=== PATIENT | male | born 1950 | race Two or more races ===

== ENCOUNTER → 2021-01-11 | Outpatient (CLI) | payer BC ==
--- NOTE | 2021-01-12 11:45 | KCIC ---
EXAM: XR LUMBAR SPINE 2-3V 01/11/2021 3:25 PM CLINICAL INDICATION: Left hip and leg pain for 6 months, bilateral lower extremity weakness COMPARISON: None TECHNIQUE: 3 views of the lumbar spine FINDINGS: There 5 nonrib-bearing lumbar vertebral bodies. No acute fracture. There is a 7 mm anterol isthesis of L4 and L5. Mild disc space narrowing throughout the lumbar spine, sparing L2-L3. Mild deg enerative endplate changes and small anterior osteophytes, greatest at L3-L4. There is multilevel fac et arthrosis, moderate in the lower lumbar spine. There are multiple round radiopaque densities in th e right hemiabdomen. IMPRESSION: Grade 1 spondylolisthesis at L4-L5. Mild multilevel degenerative disc disease. Moderate lower lumbar facet arthrosis. Electronically signed by: Nery Butcher MD (01/12/2021 11:42 AM) [id number]
== END ==
LOC: KCIC 15:16
PROVIDERS: ATTEND Family Medicine
DX: M43.16 Spondylolisthesis, lumbar region (principal); M51.36 Other intervertebral disc degeneration, lumbar region; M47.816 Spondylosis without myelopathy or radiculopathy, lumbar region; M48.061 Spinal stenosis, lumbar region without neurogenic claudication; M25.78 Osteophyte, vertebrae
CPT/HCPCS: 72100